=== PATIENT | female | born 1960 | race Caucasian/White ===

== ENCOUNTER 2019-10-01 07:23 | Day surgery (SDC) | payer MEDICAID, SELFPAY ==
[2019-09-30 07:11] VITALS: BMI 22.1
--- NOTE | 2019-10-01 07:34 | ANES.PREANE2 ---
Pre-Anesthetic Assessment Pre-Anesthetic Assessment: Height/Weight: Height 1.61 m Weight 57.606 kg Preop Diagnosis: GI Proposed Procedure: Operation Date: 10/01/19 08:30 Proposed Procedures p EGD/COLON [id number] Z87.19 Z12.11(Not Applicable) - Migel Ugalde MD s Colonoscopy(Not Applicable) - Migel Ugalde MD Familial anesthetic complications: No trouble Was Beta Cody taken within 24 hours: N/A Last intake: NPO > 8 hrs, sips with lisonpril this morning Social: Social History: Tobacco Packs per day: 0.5 ppd Exam: Pre-Anes Outpt Exam: alert, oriented x 3, clear to auscultation bilaterally and regular rate & rhythm Airway: Cervical ROM: WNL MP: 2 Dentition: Chipped Additional comments: missing Pulmonary: Pulmonary: None reported CV/HEM: CV/HEM: HTN : : None reported Hepatic: Hepatic: None reported GI: Comments: GI bleed (hx of) Metabolic: Metabolic: Hyperlipidemia Musc/skel: Musc/skel: Lower Back Pain Neuropsych: Neuropsych: None reported Anesthetic Plan: ASA status: II Anesthesia: MAC PFSH Anesthesia PFSH: Social History Smoking and tobacco status: current some day smoker cigarettes Quit status (tobacco): has tried quititng Second hand smoke exposure: Yes Smoking risk assessment/counseling performed?: No Alcohol intake: never Desire information about alcohol rehabilitation?: No Counseling given: No Desire information about substance/drug rehabilitation?: No Counseling given: No Adopted: No Caregiver/support person: No Lives independently: Yes Household members: spouse and none Housing: House Marital status: / Highest education level completed: 8th Grade service: No Current occupational status: unemployed Current occupational exposures/hazards: No Pets and animals: Yes History of recent travel: No Current gender identity: Female Avril/Scientologist: [employer] Special avril needs: No Agree to transfusion: No Data Anesthesia Cardiac Studies: No Data to Display
[2019-10-01 07:54] VITALS: BP 143/99; PULSE 76; RESP 18; TEMP 36.8; O2SAT 98
[2019-10-01] MEDS: sodium chloride 0.9% 1,000 ML 30 ML (08:03)
[2019-10-01 08:55] LABS: OR HCG Qualitative Urine Negative (Negative)
[2019-10-01 09:57] VITALS: BP 98/74; PULSE 71; RESP 16; TEMP 36.3; O2SAT 100
[2019-10-01 10:12] VITALS: BP 120/92; PULSE 76; RESP 16; TEMP 36.3; O2SAT 99
--- NOTE | 2019-10-10 13:42 | PM.HPUD ---
H&P update H&P Update: DATE OF SURGERY/PROCEDURE: 10/10/19 DATE H&P PERFORMED: 09/10/19 H&P UPDATE INFORMATION: H&P completed within last 30 days and No changes to prior documentation PREOP DIAGNOSIS: Duodenal ulcer, screening colonoscopy PLANNED PROCEDURE: Operation Date: 10/01/19 08:30 Proposed Procedures p EGD/COLON [id number] Z87.19 Z12.11(Not Applicable) - Migel Ugalde MD s Colonoscopy(Not Applicable) - Migel Ugalde MD Full H&P Perinent History: Medical/Surgical History: Medical History (Updated 10/01/19 @ 10:01 by Migel Ugalde MD) History of duodenal ulcer Hyperlipidemia Hypertension Family History: Family History (Updated 09/04/19 @ 09:56 by Amita Mendoza RN) Denies family history of Anesthesia complication Bleeding disorder Social History: Social History Smoking and tobacco status: current some day smoker cigarettes Quit status (tobacco): has tried quititng Second hand smoke exposure: Yes Smoking risk assessment/counseling performed?: No Alcohol intake: never Desire information about alcohol rehabilitation?: No Counseling given: No Desire information about substance/drug rehabilitation?: No Counseling given: No Adopted: No Caregiver/support person: No Lives independently: Yes Household members: spouse and none Housing: House Marital status: / Highest education level completed: 8th Grade service: No Current occupational status: unemployed Current occupational exposures/hazards: No Pets and animals: Yes History of recent travel: No Current gender identity: Female Lorenza/Anabaptism: Judaism Special lorenza needs: No Agree to transfusion: No
== END 2019-10-01 10:49 | disposition home or self-care (01) ==
PROVIDERS: Family Provider Family Medicine; PCP Family Medicine; Visit Provider Surgery
PROC: 0DJ08ZZ Inspection of Upper Intestinal Tract, Via Natural or Artificial Opening Endoscopic (ICD-10-PCS; CPT 43235; principal; 2019-10-01 08:30)
PROC: 0DJD8ZZ Inspection of Lower Intestinal Tract, Via Natural or Artificial Opening Endoscopic (ICD-10-PCS; CPT 45378; 2019-10-01 08:30)
DX: Z12.11 Encounter for screening for malignant neoplasm of colon (principal); Z87.11 Personal history of peptic ulcer disease; K44.9 Diaphragmatic hernia without obstruction or gangrene; K22.2 Esophageal obstruction; D12.5 Benign neoplasm of sigmoid colon; E78.5 Hyperlipidemia, unspecified; I10 Essential (primary) hypertension; F17.210 Nicotine dependence, cigarettes, uncomplicated
CPT/HCPCS: 12345; 43235; 45380; 84703; 88305; J2704; J7030

== ENCOUNTER → 2019-10-22 09:02 | Outpatient (BNVA) | payer MEDICAID, SELFPAY | PROVIDERS: Family Provider Family Medicine; PCP Family Medicine; Referring Provider Family Medicine; Visit Provider Anesthesiology Pain Medicine | DX: G89.29 Other chronic pain (principal); M54.9 Dorsalgia, unspecified; M54.2 Cervicalgia; M25.532 Pain in left wrist; M25.561 Pain in right knee; M25.562 Pain in left knee; F17.210 Nicotine dependence, cigarettes, uncomplicated; Z79.891 Long term (current) use of opiate analgesic | CPT/HCPCS: 99204; 99999 ==